=== PATIENT | female | born 1930 | race Caucasian/White ===

== ENCOUNTER 2016-12-17 16:11 | Emergency (ER) | payer MEDICARE, BC ==
[2016-12-17 16:26] VITALS: BP 138/69
--- NOTE | 2016-12-17 16:29 | EDM.PDOC ---
ED HPI GENERAL MEDICAL PROBLEM - General Chief Complaint: Respiratory Problem Stated Complaint: UPPER RESPIRATORY ISSUES Time Seen by Provider: 12/17/16 16:37 Source of Information: Reports: Patient, Family (daughter and grandson. ) History Limitations: Reports: No Limitations - History of Present Illness INITIAL COMMENTS - FREE TEXT/NARRATIVE: 86-year-old female brought to the ED by family members concerned about her oral intake. She continues to exhibit failure to thrive. She has no known Alzheimer' s disease. The concerned about her breathing is she's had to have fluid removed from her left lung on several occasions over the last few years due to recurrent pleural effusions. She is working hard to breathe. She has no appetite eat anything nothing tastes good. She does appear to have a low-grade fever and the urine is noted by the daughter to be very foul and dark in color. Patient denies nausea vomiting or diarrhea. She denies cough or sputum production although family reports that she does have a cough. Onset: Gradual (Gradual deterioration ) Onset Date: 12/14/16 Duration: Day(s):, Getting Worse Location: Reports: Generalized (Generalized failure to thrive.) Quality: Reports: Other (Nothing tastes good. Perhaps low-grade fever. Denies chills.) Severity: Moderate Improves with: Reports: None Worsens with: Reports: None Context: Denies: Activity, Exercise, Lifting, Sick Contact, Trauma, Other Associated Symptoms: Reports: Confusion, Cough (Chronic cough occasionally productive but she never brings up any sputum), Fever/Chills, Loss of Appetite, Malaise, Shortness of Breath, Weakness. Denies: Chest Pain, Diaphoresis, Headaches, Nausea/Vomiting ( Denies nausea or vomiting), Rash, Seizure Treatments ICE GUARD SKATING RINK: Reports: Acetaminophen - Related Data Allergies Allergy/AdvReac Type Severity Reaction Status Date / Time Iodinated Contrast- Oral and Allergy Cannot Verified 07/02/16 10:02 IV Dye Remember [Iodinated Contrast Media - IV Dye] Home Meds: Home Meds NK [No Known Home Meds] 0 mg PO ASDIRECTED 07/02/16 [History] Past Medical History - Past Health History Medical/Surgical History: Denies Medical/Surgical History HEENT History: Reports: Hard of Hearing, Impaired Vision Other HEENT History: Wears glasses Cardiovascular History: Reports: Afib Respiratory History: Reports: Other (See Below) Other Respiratory History: "spot" on lung found last year, frequent episodes of "fluid buildup" per family report. 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: Musculoskeletal History: Reports: Arthritis Neurological History: Reports: Alzheimers Disease, Other (See Below) Other Neuro History: dementia about 8 yrs ago, after of mother Psychiatric History: Reports: Dementia Oncologic (Cancer) History: Reports: Breast Other Oncologic History: 20 yrs ago - Infectious Disease History Infectious Disease History: Reports: Chicken Pox, Measles - Past Surgical History HEENT Surgical History: Reports: Cataract Surgery Social & Family History - Family History Family Medical History: Noncontributory HEENT: Reports: Cataract Cardiac: Reports: Pacemaker OBGYN: Reports: Oncologic: Reports: Other (See Below) Other Oncologic Family History: BRO - neck cancer, SIS (Ramon) - lung cancer, SIS and BRO - hx of skin cancers - Tobacco Use Smoking Status *Q: Never Smoker Second Hand Smoke Exposure: No - Caffeine Use Caffeine Use: Reports: Coffee - Recreational Drug Use Recreational Drug Use: No - Living Situation & Occupation Living situation: Reports: Single Occupation: Retired ED ROS GENERAL - Review of Systems Review Of Systems: Unable To Obtain (Unable to obtain with any degree of certainty from the patient she denies any problems. She is actually matted her family for poking and prodding at her and trying to get her to eat etc.) Constitutional: Reports: Malaise, Weakness, Fatigue, Decreased Appetite, Weight Loss HEENT: Reports: No Symptoms Respiratory: Reports: Shortness of Breath, Cough (Chronic). Denies: Wheezing, Pleuritic Chest Pain Cardiovascular: Reports: Dyspnea on Exertion. Denies: Chest Pain, Blood Pressure Problem, Claudication, Edema, Lightheadedness, Orthopnea Endocrine: Reports: Fatigue (Chronically) GI/Abdominal: Reports: Decreased Appetite. 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 No: Lymphadenopathy (L), Lymphadenopathy (R) Respiratory/Chest: Respiratory Distress (Tachypnea at rest 25-30/m.), Decreased Breath Sounds (To both lower lung howard but worse on the left as compared to the right. Dullness to percussion lower lung howard bilaterally. Supsect pleural effusions.), Other (Moderate kyphosis creating some component of restrictive lung disease.) Cardiovascular: Regular Rate, Rhythm, No Edema, No Gallop, No Murmur (Grade 1/6 systolic ejection murmur at the left lower sternal border. Murmur is intermittent.) Peripheral Pulses: 1+: Posterior Tibial (L), Posterior Tibial (R), Dorsalis Pedis (L), Dorsalis Pedis (R) GI/Abdominal: Normal Bowel Sounds, Soft, Non-Tender, No Organomegaly, Other. No : Guarding (Diffuse to pain to percussion with no tenderness guarding or rigidity.), Rigid, Rebound Back Exam: Other (Moderate kyphosis thoracic spine) Extremities: Slow Capillary Refill, Other (Marked cachexia with wasting of leg musculature.). No: Pedal Edema, Joint Swelling, Arm Pain, Soy's Sign, Leg Pain Neurological: Alert, No Motor/Sensory Deficits, Confused, Memory Loss Remote Events. No: Oriented, Normal Cognition (Disoriented to time and place.), Normal Gait, Disoriented (Mildly at times), Slow to Respond, Unresponsive Psychiatric: Normal Affect Skin Exam: Warm, Dry, Intact, Pallor (Mildly pallid.) Course - Vital Signs Last Recorded V/S: Last Vital Signs Temp 37.0 C 12/17/16 17:31 Pulse 89 12/17/16 16:22 Resp 25 H 12/17/16 16:22 BP 138/69 12/17/16 16:22 Pulse Ox 94 L 12/17/16 16:22 - Orders/Labs/Meds Orders: Active Orders 24 hr Category Date Time Status EKG Documentation Completion [RC] STAT Care 12/17/16 16:38 Active Chest 1V Frontal [CR] Stat Exams 12/17/16 16:37 Taken CULTURE BLOOD [BC] Stat Lab 12/17/16 17:15 Received CULTURE BLOOD [BC] Stat Lab 12/17/16 18:00 Received URINALYSIS W/MICROSCOPIC [UA W/MICROSCOPIC] [URIN] Stat Lab 12/17/16 18:20 Results Dextrose 5%-0.9% NaCl [Dextrose 5%-Normal Saline] 1,000 Med 12/17/16 16:45 Active ml IV ASDIRECTED Blood Culture x2 Reflex Set [OM.PC] Stat Oth 12/17/16 16:38 Ordered Medication Orders Dextrose/Sodium Chloride (Dextrose 5%-Normal Saline) 1,000 mls @ 250 mls/hr IV ASDIRECTED MAGDA Last Admin: 12/17/16 17:31 Dose: 250 mls/hr Labs: Laboratory Tests 12/17/16 12/17/16 12/17/16 Range/Units 17:00 17:15 17:15 WBC 4.50 (3.98-10.04) K/mm3 RBC 4.13 (3.98-5.22) M/mm3 Hgb 12.9 (11.2-15.7) gm/L Hct 37.8 (34.1-44.9) % MCV 91.5 (79.4-94.8) fl MCH 31.2 (25.6-32.2) pg MCHC 34.1 (32.2-35.5) g/dl RDW Std Deviation 44.1 (36.4-46.3) fL Plt Count 141 L (182-369) K/mm3 MPV 11.7 (9.4-12.3) fl Neutrophils % (Manual) 77 H (40-60) % Band Neutrophils % 0 (0-10) % Lymphocytes % (Manual) 19 L (20-40) % Atypical Lymphs % 0 % Monocytes % (Manual) 2 (2-10) % Eosinophils % (Manual) 2 (0.7-5.8) % Basophils % (Manual) 0 L (0.1-1.2) Platelet Estimate Adequate RBC Morph Comment Normal ESR (0-20) mm/hr PT 11.0 (8.0-13.0) SECONDS INR 1.01 Sodium (136-145) mEq/L Potassium (3.5-5.1) mEq/L Chloride (98-107) mEq/L Carbon Dioxide (21-32) mEq/L Anion Gap (5-15) BUN (7-18) mg/dL Creatinine (0.55-1.02) mg/dL Est Cr Clr Drug Dosing mL/min Estimated GFR (MDRD) (>60) mL/min BUN/Creatinine Ratio (14-18) Glucose (83-115) mg/dL Calcium (8.5-10.1) mg/dL Total Bilirubin (0.2-1.0) mg/dL AST (15-37) U/L ALT (14-59) U/L Alkaline Phosphatase (46-116) U/L Troponin I (0.00-0.056) ng/mL C-Reactive Protein (<1.0) mg/dL B-Natriuretic Peptide 100 (0-100) pg/mL Total Protein (6.4-8.2) g/dl Albumin (3.4-5.0) g/dl Globulin gm/dL Albumin/Globulin Ratio (1-2) Urine Color (Yellow) Urine Appearance (Clear) Urine pH (5.0-8.0) Ur Specific [place] (1.005-1.030) Urine Protein (Negative) Urine Glucose (UA) (Negative) Urine Ketones (Negative) Urine Occult Blood (Negative) Urine Nitrite (Negative) Urine Bilirubin (Negative) Urine Urobilinogen (0.2-1.0) Ur Leukocyte Esterase (Negative) 12/17/16 12/17/16 12/17/16 Range/Units 17:15 17:15 18:20 WBC (3.98-10.04) K/mm3 RBC (3.98-5.22) M/mm3 Hgb (11.2-15.7) gm/L Hct (34.1-44.9) % MCV (79.4-94.8) fl MCH (25.6-32.2) pg MCHC (32.2-35.5) g/dl RDW Std Deviation (36.4-46.3) fL Plt Count (182-369) K/mm3 MPV (9.4-12.3) fl Neutrophils % (Manual) (40-60) % Band Neutrophils % (0-10) % Lymphocytes % (Manual) (20-40) % Atypical Lymphs % % Monocytes % (Manual) (2-10) % Eosinophils % (Manual) (0.7-5.8) % Basophils % (Manual) (0.1-1.2) Platelet Estimate RBC Morph Comment ESR 82 H (0-20) mm/hr PT (8.0-13.0) SECONDS INR Sodium 140 (136-145) mEq/L Potassium 3.8 (3.5-5.1) mEq/L Chloride 104 (98-107) mEq/L Carbon Dioxide 24 (21-32) mEq/L Anion Gap 15.8 H (5-15) BUN 14 (7-18) mg/dL Creatinine 1.0 (0.55-1.02) mg/dL Est Cr Clr Drug Dosing 27.53 mL/min Estimated GFR (MDRD) 52 (>60) mL/min BUN/Creatinine Ratio 14.0 (14-18) Glucose 91 (83-115) mg/dL Calcium 8.8 (8.5-10.1) mg/dL Total Bilirubin 1.5 H (0.2-1.0) mg/dL AST 13 L (15-37) U/L ALT 12 L (14-59) U/L Alkaline Phosphatase 82 (46-116) U/L Troponin I < 0.017 (0.00-0.056) ng/mL C-Reactive Protein 3.3 H* (<1.0) mg/dL B-Natriuretic Peptide (0-100) pg/mL Total Protein 7.2 (6.4-8.2) g/dl Albumin 3.2 L (3.4-5.0) g/dl Globulin 4.0 gm/dL Albumin/Globulin Ratio 0.8 L (1-2) Urine Color Dark yellow (Yellow) Urine Appearance Clear (Clear) Urine pH 5.5 (5.0-8.0) Ur Specific [place] > or = 1.030 (1.005-1.030) Urine Protein 1+ H (Negative) Urine Glucose (UA) Negative (Negative) Urine Ketones 1+ H (Negative) Urine Occult Blood Negative (Negative) Urine Nitrite Negative (Negative) Urine Bilirubin 1+ H (Negative) Urine Urobilinogen 1.0 (0.2-1.0) Ur Leukocyte Esterase Negative (Negative) Meds: Medications Generic Name Dose Route Start Last Admin Trade Name Freq PRN Reason Stop Dose Admin Dextrose/Sodium Chloride 1,000 mls @ 250 mls/hr 12/17/16 16:45 12/17/16 17:31 Dextrose 5%-Normal Saline IV 250 mls/hr ASDIRECTED MAGDA Administration Discontinued Medications Generic Name Dose Route Start Last Admin Trade Name Freq PRN Reason Stop Dose Admin Acetaminophen 650 mg 12/17/16 16:40 12/17/16 17:31 Tylenol PO 12/17/16 16:41 650 mg ONETIME ONE Administration - Radiology Interpretation Free Text/Narrative:: 86-year-old female brought to the ED by family members because of concerns about her difficulty breathing. They appreciate that she's working hard to breathe. She has a history of recurrent left-sided pleural effusion requiring thoracentesis. Been off for the last several years. She is eating extremely poorly and no doubt has hypo-daughter also appreciates that her urine is foul- smelling and suspects a urinary tract infection. Clinically she does have a low- grade fever. Patient herself denies most problems due to underlying organic brain disease. Plan CBC CMP urinalysis one view chest x-ray given Tylenol 650 mg per ora for fever relief. He will be D5 normal saline at 250 mils per hour - Re-Assessments/Exams Free Text/Narrative Re-Assessment/Exam: 12/17/16 18:12 chest x-ray does reveal bilateral pleural effusions taking up about 25-30% of the lower lung howard bilaterally. Labs reveal a normal white count of 4.5 with a slight left shift of 77% neutrophils and no bands. Hemoglobin is 12.9 hematocrit is 37.8. Platelets 141,000. Coags are normal sodium 140 potassium 3.8. Cord 104 bicarbonate 24. And a gap is 15.8. Bilirubin is 1.5 glucose is 91. Troponin is normal at less than 0.017 CRP is mildly elevated 3.3 albumin fraction 3.2 BNP is only 100. Creatinine is 1.0 and eGFR is 52. Therefore the etiology of bilateral pleural effusions without signs of significant heart failure is unclear. Clearly she has had thoracenteses on several times in the past but I'm not privy to the information as to whether the fluid was a transudate or showed any signs of malignancy. Tentatively she will need to be admitted to the hospital but I'm awaiting for her urinalysis as she may have a low-grade fever from UTI. Of note her ECG revealed sinus rhythm at 89/m. 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 There are also Q waves in lead 3 and near Q waves in aVF suggestive of an old inferior wall myocardial infarction. First-degree AV block present. ST segment depression noted in lead 1. Abnormal ECG 12/17/16 18:53 the urinalysis dip anyways was negative for any signs of infection particular negative leukocyte esterase. Therefore the major finding is bilateral pleural effusions taking up 20-25% of each lung field causing her chronic cough. I strongly suspect with a sedimentation rate of 82 that she has an underlying malignancy contributing to pleural effusions. Her heart BNP is normal indicating normal function for the most part and her albumin fraction is is good as well. Therefore most likely cause of bilateral pleural effusions is an underlying malignancy. Spoke at length with the family members who son grandson and a daughter whom she lives with. Made a decision to take her home tonight versus place her in the hospital for thoracentesis as she does very well poorly in hospital in a strange environment due to her dementia. Will make arrangements with follow-up with personnel at [facility] and thoracentesis could be performed as an outpatient procedure risks confirmation of possible malignancy. She would not benefit from any medications at this time as diuretics will just just cause dehydration with minimal ability to improve her pleural effusions. Family understands this and she will be discharged to home. Departure - Departure Time of Disposition: 19:03 Disposition: Home, Self-Care 01 Condition: Fair Clinical Impression: Adult failure to thrive syndrome, Bilateral pleural effusion - Discharge Information Forms: ED Department Discharge Additional Instructions: Evaluation carried out in the emergency today in regards to essentially adult failure to thrive syndrome. Complete loss of appetite with continued gradual weight loss decline in health. Persistent nagging nonproductive cough. Chest x- ray does reveal fluid in the bottom of both lungs taking up 20-25% of lung volume on both sides. The rest of her lab work proved to be negative for any signs of infection in the urinalysis obtained by catheterization was also negative for any source of infection. Heart is functioning well and kidneys are doing not too badly. Therefore concern for an underlying malignancy is evident. The only way to prove this would be to have some of the fluid removed from one of her lungs preferably the right one for cell analysis to see if it can identify a malignancy. CT of the abdomen and pelvis may also shed light on possible causes. 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 Therefore decision made to follow-up in clinic with an outpatient thoracentesis possible to help prove the diagnosis and see if there is a treatment plan available to her. At this time no treatment options were offered through the emergency room. - My Orders Last 24 Hours: My Active Orders 12/17/16 16:37 Chest 1V Frontal [CR] Stat 12/17/16 16:38 EKG Documentation Completion [RC] STAT Blood Culture x2 Reflex Set [OM.PC] Stat 12/17/16 16:45 Dextrose 5%-0.9% NaCl [Dextrose 5%-Normal Saline] 1,000 ml IV ASDIRECTED 12/17/16 17:15 CULTURE BLOOD [BC] Stat 12/17/16 18:00 CULTURE BLOOD [BC] Stat 12/17/16 18:20 URINALYSIS W/MICROSCOPIC [UA W/MICROSCOPIC] [URIN] Stat - Assessment/Plan Last 24 Hours: My Active Orders 12/17/16 16:37 Chest 1V Frontal [CR] Stat 12/17/16 16:38 EKG Documentation Completion [RC] STAT Blood Culture x2 Reflex Set [OM.PC] Stat 12/17/16 16:45 Dextrose 5%-0.9% NaCl [Dextrose 5%-Normal Saline] 1,000 ml IV ASDIRECTED 12/17/16 17:15 CULTURE BLOOD [BC] Stat 12/17/16 18:00 CULTURE BLOOD [BC] Stat 12/17/16 18:20 URINALYSIS W/MICROSCOPIC [UA W/MICROSCOPIC] [URIN] Stat
[2016-12-17] MEDS ORDERED: Acetaminophen 325 MG Tab PO ONE (16:40)
[2016-12-17] MEDS ORDERED: Dextrose 5%-0.9% NaCl 1,000 ML IV SCH (16:45)
--- NOTE | 2016-12-18 08:02 | CR ---
Chest: Portable view of the chest was obtained. Comparison: Previous chest x-ray of 07/03/16. Bilateral pleural effusions are seen. Pulmonary vessels are mildly congested. Heart size is slightly enlarged. Bony structures are osteopenic. Compression deformities are seen within the mid thoracic spine which appear old. Surgical clips are noted within the left upper abdomen. Impression: 1. Bilateral pleural effusions. Findings are suspicious for CHF. 2. Other incidental findings. Diagnostic code #3
== END 2016-12-17 19:38 | disposition home or self-care (01) ==
LOC: JD.ED 16:11
DX: J90 Pleural effusion, not elsewhere classified (principal); R62.7 Adult failure to thrive; I48.91 Unspecified atrial fibrillation; Z91.041 Radiographic dye allergy status; R06.02 Shortness of breath
CPT/HCPCS: 36415; 71010; 80053; 81001; 83880; 84484; 85025; 85610; 85652; 86140; 87040; 93005; 96360; 96361; 99285; A9270; J7042; P9612; 99283

== ENCOUNTER 2017-01-24 11:05 | Emergency (ER) | payer MEDICARE, BC ==
[2017-01-24 11:17] VITALS: BP 132/84
[2017-01-24] MEDS ORDERED: Sodium Chloride 0.9% 10 ML Syringe FLUSH PRN (11:50)
--- NOTE | 2017-01-24 12:12 | EDM.PDOC ---
ED HPI GENERAL MEDICAL PROBLEM - General Chief Complaint: Respiratory Problem Stated Complaint: WEAKNESS Time Seen by Provider: 01/24/17 11:18 Source of Information: Reports: Patient, Family (daughters) History Limitations: Reports: Other (dementia) - History of Present Illness INITIAL COMMENTS - FREE TEXT/NARRATIVE: 86-year-old female is brought in by her sisters for evaluation and treatment of increased weakness. Weakness has been worsening over the last 3-4 weeks. They currently report a decreased appetite and stated that she will not take any foods or fluids, Decreased energy, shortness of breath, weakness and lethargy. They deny any cough. Reports that she had temperature of 99 Fahrenheit last night but otherwise no temperatures. She is not complaining of any pain, including chest pain or abdominal pain. Daughters report that she did have one episode of vomiting last name 2 episodes of diarrhea last night. Patient has a past medical history of frequent pleural effusions have required several chest tubes in the past. Most recent chest tube placement resulted in Lissy pulling out the tubes. Family no longer wants chest tubes placed and according to family, pulmonology would recommend against further chest tube placement. Patient is a DNR, DNI. - Related Data Allergies Allergy/AdvReac Type Severity Reaction Status Date / Time Iodinated Contrast- Oral and Allergy Cannot Verified 01/24/17 11:17 IV Dye Remember [Iodinated Contrast Media - IV Dye] Home Meds: Home Meds Aspirin 81 mg PO DAILY 01/24/17 [History] Azithromycin [IMW: Azithromycin] 250 mg PO BID 01/24/17 [History] Past Medical History - Past Health History Medical/Surgical History: Denies Medical/Surgical History HEENT History: Reports: Hard of Hearing, Impaired Vision Other HEENT History: Wears glasses Cardiovascular History: Reports: Afib, Heart Failure Respiratory History: Reports: Other (See Below) Other Respiratory History: "spot" on lung found last year, frequent episodes of "fluid buildup" per family report. 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: Musculoskeletal History: Reports: Arthritis Neurological History: Reports: Alzheimers Disease, Other (See Below) Other Neuro History: dementia about 8 yrs ago, after of mother Psychiatric History: Reports: Dementia Oncologic (Cancer) History: Reports: Breast Other Oncologic History: 20 yrs ago - Infectious Disease History Infectious Disease History: Reports: Chicken Pox, Measles - Past Surgical History Head Surgeries/Procedures: Reports: None HEENT Surgical History: Reports: Cataract Surgery Female Surgical History: Reports: Hysterectomy Dermatological Surgical History: Reports: None Social & Family History - Family History Family Medical History: Noncontributory HEENT: Reports: Cataract Cardiac: Reports: Pacemaker OBGYN: Reports: Oncologic: Reports: Other (See Below) Other Oncologic Family History: BRO - neck cancer, SIS (Ramon) - lung cancer, SIS and BRO - hx of skin cancers - Tobacco Use Smoking Status *Q: Never Smoker Second Hand Smoke Exposure: No - Caffeine Use Caffeine Use: Reports: Coffee - Recreational Drug Use Recreational Drug Use: No - Living Situation & Occupation Living situation: Reports: Single Occupation: Retired ED ROS GENERAL - Review of Systems Review Of Systems: See Below Constitutional: Reports: Weakness, Fatigue, Decreased Appetite. Denies: Fever Respiratory: Reports: Shortness of Breath. Denies: Cough Cardiovascular: Denies: Chest Pain GI/Abdominal: Reports: Diarrhea (x2 last night), Vomiting (x1 last night). Denies: Abdominal Pain, Nausea ED EXAM, GENERAL - Physical Exam Exam: See Below Exam Limited By: No Limitations General Appearance: Alert, No Apparent Distress, Thin Ears: Normal External Exam, Normal Canal, Hearing Grossly Normal, Normal TMs Nose: Normal Inspection Throat/Mouth: Normal Inspection, Normal Lips, Normal Voice, No Airway Compromise , Other (dry mucus membranes) Respiratory/Chest: No Respiratory Distress, Crackles (left lower lung base) Cardiovascular: Normal Peripheral Pulses, Regular Rate, Rhythm, No Edema, No Murmur GI/Abdominal: Normal Bowel Sounds, Soft, Non-Tender Neurological: Alert Psychiatric: Normal Affect, Normal Mood Skin Exam: Warm, Dry, Normal Color EKG INTERPRETATION EKG Date: 01/24/17 Time: 11:55 Rhythm: NSR Rate (Beats/Min): 79 [place]: LAD-Left [place] Deviation P-Wave: Present QRS: Normal ST-T: Normal QT: Normal EKG Interpretation Comments: NSR at [address] elevation in V2. Q waves inferior and anterior leads. Abnormal EKG Reviewed by myself and Dr. Guerra Minimal change from prior ekg- Q waves in V2 Course - Vital Signs Last Recorded V/S: Last Vital Signs Temp 36.4 C 01/24/17 11:13 Pulse 83 01/24/17 11:13 Resp 26 H 01/24/17 11:13 BP 132/84 01/24/17 11:13 Pulse Ox - Orders/Labs/Meds Labs: Laboratory Tests 01/24/17 01/24/17 01/24/17 Range/Units 12:00 12:00 12:00 WBC 3.38 L (3.98-10.04) K/mm3 RBC 4.72 (3.98-5.22) M/mm3 Hgb 14.4 (11.2-15.7) gm/L Hct 43.3 (34.1-44.9) % MCV 91.7 (79.4-94.8) fl MCH 30.5 (25.6-32.2) pg MCHC 33.3 (32.2-35.5) g/dl RDW Std Deviation 48.2 H (36.4-46.3) fL Plt Count 145 L (182-369) K/mm3 MPV 11.4 (9.4-12.3) fl Neutrophils % (Manual) 80 H (40-60) % Band Neutrophils % 0 (0-10) % Lymphocytes % (Manual) 15 L (20-40) % Atypical Lymphs % 0 % Monocytes % (Manual) 5 (2-10) % Eosinophils % (Manual) 0 L (0.7-5.8) % Basophils % (Manual) 0 L (0.1-1.2) Platelet Estimate Adequate RBC Morph Comment Normal Sodium 140 (136-145) mEq/L Potassium 3.9 (3.5-5.1) mEq/L Chloride 105 (98-107) mEq/L Carbon Dioxide 29 (21-32) mEq/L Anion Gap 9.9 (5-15) BUN 15 (7-18) mg/dL Creatinine 1.1 H (0.55-1.02) mg/dL Est Cr Clr Drug Dosing 23.48 mL/min Estimated GFR (MDRD) 47 (>60) mL/min BUN/Creatinine Ratio 13.6 L (14-18) Glucose 104 (83-115) mg/dL POC Glucose (83-110) mg/dL Lactic Acid (0.4-2.0) mmol/L Calcium 9.4 (8.5-10.1) mg/dL Magnesium 2.2 (1.8-2.4) mg/dl Total Bilirubin 1.2 H (0.2-1.0) mg/dL AST 34 (15-37) U/L ALT 25 (14-59) U/L Alkaline Phosphatase 79 (46-116) U/L CK-MB (CK-2) < 0.5 (0-3.6) ng/ml Troponin I < 0.017 (0.00-0.056) ng/mL C-Reactive Protein 0.3 (<1.0) mg/dL [id number] Pept 638 H (0-450) pg/mL Total Protein 7.7 (6.4-8.2) g/dl Albumin 3.4 (3.4-5.0) g/dl Globulin 4.3 gm/dL Albumin/Globulin Ratio 0.8 L (1-2) Urine Color (Yellow) Urine Appearance (Clear) Urine pH (5.0-8.0) Ur Specific [place] (1.005-1.030) Urine Protein (Negative) Urine Glucose (UA) (Negative) Urine Ketones (Negative) Urine Occult Blood (Negative) Urine Nitrite (Negative) Urine Bilirubin (Negative) Urine Urobilinogen (0.2-1.0) Ur Leukocyte Esterase (Negative) Urine RBC (0-5) /hpf Urine WBC (0-5) /hpf Ur Epithelial Cells (0-5) /hpf Urine Bacteria (FEW) /hpf Urine Mucus (FEW) /hpf 01/24/17 01/24/17 01/24/17 Range/Units 12:10 12:25 16:20 WBC (3.98-10.04) K/mm3 RBC (3.98-5.22) M/mm3 Hgb (11.2-15.7) gm/L Hct (34.1-44.9) % MCV (79.4-94.8) fl MCH (25.6-32.2) pg MCHC (32.2-35.5) g/dl RDW Std Deviation (36.4-46.3) fL Plt Count (182-369) K/mm3 MPV (9.4-12.3) fl Neutrophils % (Manual) (40-60) % Band Neutrophils % (0-10) % Lymphocytes % (Manual) (20-40) % Atypical Lymphs % % Monocytes % (Manual) (2-10) % Eosinophils % (Manual) (0.7-5.8) % Basophils % (Manual) (0.1-1.2) Platelet Estimate RBC Morph Comment Sodium (136-145) mEq/L Potassium (3.5-5.1) mEq/L Chloride (98-107) mEq/L Carbon Dioxide (21-32) mEq/L Anion Gap (5-15) BUN (7-18) mg/dL Creatinine (0.55-1.02) mg/dL Est Cr Clr Drug Dosing mL/min Estimated GFR (MDRD) (>60) mL/min BUN/Creatinine Ratio (14-18) Glucose (83-115) mg/dL POC Glucose 92 (83-110) mg/dL Lactic Acid 1.3 (0.4-2.0) mmol/L Calcium (8.5-10.1) mg/dL Magnesium (1.8-2.4) mg/dl Total Bilirubin (0.2-1.0) mg/dL AST (15-37) U/L ALT (14-59) U/L Alkaline Phosphatase (46-116) U/L CK-MB (CK-2) (0-3.6) ng/ml Troponin I (0.00-0.056) ng/mL C-Reactive Protein (<1.0) mg/dL [id number]-Vtlbeyqczvp Pept (0-450) pg/mL Total Protein (6.4-8.2) g/dl Albumin (3.4-5.0) g/dl Globulin gm/dL Albumin/Globulin Ratio (1-2) Urine Color Yellow (Yellow) Urine Appearance Clear (Clear) Urine pH 5.5 (5.0-8.0) Ur Specific [place] > or = 1.030 (1.005-1.030) Urine Protein 1+ H (Negative) Urine Glucose (UA) Negative (Negative) Urine Ketones 1+ H (Negative) Urine Occult Blood 1+ H (Negative) Urine Nitrite Negative (Negative) Urine Bilirubin 1+ H (Negative) Urine Urobilinogen 0.2 (0.2-1.0) Ur Leukocyte Esterase Negative (Negative) Urine RBC 0-5 (0-5) /hpf Urine WBC 0-5 (0-5) /hpf Ur Epithelial Cells 0-5 (0-5) /hpf Urine Bacteria Few (FEW) /hpf Urine Mucus Few (FEW) /hpf Meds: Medications Discontinued Medications Generic Name Dose Route Start Last Admin Trade Name Jackie PRN Reason Stop Dose Admin Sodium Chloride 1,000 mls @ 75 mls/hr 01/24/17 15:00 01/24/17 15:06 Normal Saline IV 75 mls/hr ASDIRECTED MAGDA Administration Sodium Chloride 10 ml 01/24/17 11:50 01/24/17 12:03 Saline Flush FLUSH 10 ml ASDIRECTED PRN Administration Keep Vein Open - Radiology Interpretation Free Text/Narrative:: chest xray [address] Pendleton: 1. Small to moderate sized pleural effusions. 2. Pulmonary vessels are congested. 3. Other incidental findings. - Re-Assessments/Exams Free Text/Narrative Re-Assessment/Exam: 01/24/17 17:49 Labs include the following: wbc slightly low at 3.38, hgb is 14.4 and plts are 145 sodium is 140, potassium is 3.9 and chloride is 105. anion gap is 9.9. Total bili slightly elevated at 1.2 BNP elevated at 638 CKMB is normal at <0.5 trop is normal at <0.017 UA has 1+ protein, 1+ ketones, 1+ blood, 1+ bili I discussed the labs, ekg and imaging withe patient and her sisters. Discussed admission for IV hydration, social work consult and dietary consult. After a lengthy discussion family elected to admit. I spoke with Dr. Weston, hospitalist, who would like social work to come and see her now in the ER prior to an admission. After social work talked with the family, they elected instead to bring Lissy home. After seeing social work, Lissy had an unresponsive episode. She would not respond to her sisters shaking her nor sternal rubs from nursing staff. She is a DNR, DNI and we had a previous discussion that they want no further intervention therefore no code or medical alert was called. The patient was on the threat monitoring analyst and had a pulse during the entire time. This occurred around 16:15 and lasted approximately 30 minutes. When I revisited the patient around 16:45 she began to become more responsive. I offered additional testing such as a CT but family declined as she is not a surgical candidate and wound not want thrombolytics. This episode did cause concern for one of the sisters who then asked we admit the patient. I asked social work to come and again see the family. A management accounts manager was contacted and he came and saw Lissy in the ER. At this time the patient's sister, who is her primary care provider, feels comfortable taking the patient home. The patient is now alert and talkative. She is requesting to go home. The other sister would like Lissy to stay but is ok with her going home. Unfortunately I do not feel Lissy has much time left. She is not in any pain. But family does not want further intervention. We did discuss tube placement for feeding which they declined. Will discharge home. Discharge instructions as documented. Departure - Departure Time of Disposition: 17:54 Disposition: Home, Self-Care 01 Condition: Poor Clinical Impression: Bilateral pleural effusion, Adult failure to thrive syndrome - Discharge Information Instructions: Failure to Thrive, Adult, [id number] Referrals: Isabela Coates, MECHANICAL MAINTENANCE FOREMAN [Primary Care Provider] - Forms: ED Department Discharge Additional Instructions: Go home and rest. It is likely Lissy may pass in the next couple of days. Make her comfortable. Encourage sips of fluids. Follow-up with her PCP as needed. Please return to the ER for any problems or concerns.
--- NOTE | 2017-01-24 13:42 | CR ---
Chest: Portable view of the chest was obtained. Comparison: Previous chest x-ray of 12/17/16. Small to moderate sized bilateral pleural effusions are noted. Pulmonary vessels appear congested. Heart is enlarged. Bony structures are grossly intact. There is a compression deformity seen within the lower thoracic spine which appears old. Impression: 1. Small to moderate sized bilateral pleural effusions. 2. Pulmonary vessels are congested. 3. Other incidental findings. Diagnostic code #3
[2017-01-24] MEDS ORDERED: Sodium Chloride 0.9% 1,000 ML IV SCH (15:00)
== END 2017-01-24 18:00 | disposition home or self-care (01) ==
LOC: JD.ED 11:05
DX: J90 Pleural effusion, not elsewhere classified (principal); R62.7 Adult failure to thrive; I50.9 Heart failure, unspecified; I48.91 Unspecified atrial fibrillation; G30.9 Alzheimer's disease, unspecified; F02.80 Dementia in other diseases classified elsewhere, unspecified severity, without behavioral disturbance, psychotic disturbance, mood disturbance, and anxiety; Z85.3 Personal history of malignant neoplasm of breast; Z98.49 Cataract extraction status, unspecified eye; Z90.710 Acquired absence of both cervix and uterus; Z79.82 Long term (current) use of aspirin; Z91.041 Radiographic dye allergy status
CPT/HCPCS: 36415; 71010; 80053; 81001; 82553; 82962; 83605; 83735; 83880; 84484; 85025; 86140; 87040; 93005; 96360; 96361; 99285; J7040; J7050; P9612; 99284

== ENCOUNTER 2017-03-10 09:06 | Emergency (ER) | payer MEDICARE, BC ==
[2017-03-10 09:40] VITALS: BP 122/80
--- NOTE | 2017-03-10 10:38 | CR ---
Chest: Portable view of the chest was obtained. Comparison: Previous chest x-ray of 01/24/17. Moderately large bilateral pleural effusions are seen. Pulmonary vessels are mildly congested. Heart size is slightly enlarged. Bony structures show stable compression deformity within the lower thoracic spine. Osteopenia is noted. Mild scoliosis is present within the spine. Single surgical clip is noted within the left upper abdomen. Impression: 1. Findings as described above. Study appears fairly stable from previous exam. Diagnostic code #3
--- NOTE | 2017-03-10 10:47 | EDM.PDOC ---
ED HPI GENERAL MEDICAL PROBLEM - General Chief Complaint: Respiratory Problem Stated Complaint: CHF FLARE UP Time Seen by Provider: 03/10/17 09:47 Source of Information: Reports: Patient, RN Notes Reviewed - History of Present Illness INITIAL COMMENTS - FREE TEXT/NARRATIVE: 86-year-old female brought in by family with concerns about worseningdifficulty breathing, generalized weakness, not eating or drinking well. She does have history of chronic CHF. She does have dementia. Having difficulty getting her to eat or drink. She apparently does have great difficulty with any type of solids. She has been getting pleural effusions over the past 1-2 years. She did actually have a chest tube or drainage tube put in about 3 months ago which was left in for about 2 weeks. Remove due to some possible infection issues and also she was having a lot of pain with that. Family did bring her to [place] last week to see her nanny babysitter. He stated that there was not much point in continuing to do thoracocentesis because "the fluid which is come back". Family is looking primarily at comfort care measures at this time. - Related Data Allergies Allergy/AdvReac Type Severity Reaction Status Date / Time Iodinated Contrast- Oral and Allergy Cannot Verified 01/24/17 11:17 IV Dye Remember [Iodinated Contrast Media - IV Dye] Home Meds: Home Meds . [No Known Home Meds] 03/10/17 [History] Past Medical History - Past Health History Medical/Surgical History: Denies Medical/Surgical History HEENT History: Reports: Hard of Hearing, Impaired Vision Other HEENT History: Wears glasses Cardiovascular History: Reports: Afib, Heart Failure Respiratory History: Reports: Other (See Below) Other Respiratory History: "spot" on lung found last year, frequent episodes of "fluid buildup" per family report. 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: Musculoskeletal History: Reports: Arthritis Neurological History: Reports: Alzheimers Disease, Other (See Below) Other Neuro History: dementia about 8 yrs ago, after of mother Psychiatric History: Reports: Dementia Oncologic (Cancer) History: Reports: Breast Other Oncologic History: 20 yrs ago - Infectious Disease History Infectious Disease History: Reports: Chicken Pox, Measles - Past Surgical History Head Surgeries/Procedures: Reports: None HEENT Surgical History: Reports: Cataract Surgery Female Surgical History: Reports: Hysterectomy Dermatological Surgical History: Reports: None Social & Family History - Family History Family Medical History: Noncontributory HEENT: Reports: Cataract Cardiac: Reports: Pacemaker OBGYN: Reports: Oncologic: Reports: Other (See Below) Other Oncologic Family History: BRO - neck cancer, SIS (Ramon) - lung cancer, SIS and BRO - hx of skin cancers - Tobacco Use Smoking Status *Q: Unknown Ever Smoked Second Hand Smoke Exposure: No - Caffeine Use Caffeine Use: Reports: Coffee - Recreational Drug Use Recreational Drug Use: No - Living Situation & Occupation Living situation: Reports: Single Occupation: Retired ED ROS GENERAL - Review of Systems Review Of Systems: See Below Constitutional: Denies: Fever, Chills HEENT: Reports: No Symptoms Respiratory: Reports: Shortness of Breath, Cough (occasional) Cardiovascular: Denies: Chest Pain GI/Abdominal: Reports: Decreased Appetite. Denies: Abdominal Pain, Nausea, Vomiting Musculoskeletal: Denies: Leg Pain Skin: Reports: No Symptoms Neurological: Reports: Dizziness, Difficulty Walking, Weakness (generalized) ED EXAM, GENERAL - Physical Exam Exam: See Below General Appearance: Alert, No Apparent Distress Eye Exam: Bilateral Eye: PERRL Throat/Mouth: Normal Inspection, Normal Oropharynx Head: Atraumatic. No: Facial Swelling Neck: Supple, Other (no JVD) Respiratory/Chest: Respiratory Distress (mild tachypnea). No: Rales, Rhonchi, Wheezing Cardiovascular: Tachycardia GI/Abdominal: Soft, Non-Tender Back Exam: No: CVA Tenderness (L), CVA Tenderness (R) Extremities: No: No Pedal Edema, Joint Swelling, Increased Warmth Neurological: Other (mildly drowsy, arouseable, answers simple questions appropriately) Skin Exam: Warm, Dry, Normal Color Course - Vital Signs Last Recorded V/S: Last Vital Signs Temp 97.9 F 03/10/17 09:36 Pulse 102 H 03/10/17 09:36 Resp 24 H 03/10/17 09:36 BP 122/80 03/10/17 09:36 Pulse Ox 95 03/10/17 09:36 - Orders/Labs/Meds Labs: Laboratory Tests 03/10/17 03/10/17 Range/Units 10:30 10:30 WBC 5.76 (3.98-10.04) K/mm3 RBC 4.38 (3.98-5.22) M/mm3 Hgb 13.7 (11.2-15.7) gm/L Hct 40.8 (34.1-44.9) % MCV 93.2 (79.4-94.8) fl MCH 31.3 (25.6-32.2) pg MCHC 33.6 (32.2-35.5) g/dl RDW Std Deviation 48.3 H (36.4-46.3) fL Plt Count 110 L (182-369) K/mm3 MPV 12.3 (9.4-12.3) fl Neut % (Auto) 86.0 H (34.0-71.1) % Lymph % (Auto) 6.9 L (19.3-51.7) % [place] % (Auto) 6.4 (4.7-12.5) % Eos % (Auto) 0.3 L (0.7-5.8) Baso % (Auto) 0.2 (0.1-1.2) % Neut # (Auto) 4.95 (1.56-6.13) K/mm3 Lymph # (Auto) 0.40 L (1.18-3.74) K/mm3 [place] # (Auto) 0.37 H (0.24-0.36) K/mm3 Eos # (Auto) 0.02 L (0.04-0.36) K/mm3 Baso # (Auto) 0.01 (0.01-0.08) K/mm3 Manual Slide Review Abnormal smear Sodium 144 (136-145) mEq/L Potassium 3.8 (3.5-5.1) mEq/L Chloride 107 (98-107) mEq/L Carbon Dioxide 26 (21-32) mEq/L Anion Gap 14.8 (5-15) BUN 31 H (7-18) mg/dL Creatinine 1.2 H (0.55-1.02) mg/dL Est Cr Clr Drug Dosing 18.68 mL/min Estimated GFR (MDRD) 42 (>60) mL/min BUN/Creatinine Ratio 25.8 H (14-18) Glucose 203 H (83-115) mg/dL Calcium 9.0 (8.5-10.1) mg/dL Total Bilirubin 1.3 H (0.2-1.0) mg/dL AST 24 (15-37) U/L ALT 15 (14-59) U/L Alkaline Phosphatase 69 (46-116) U/L NT-Pro-B Natriuret Pep 64933 H (0-450) pg/mL Total Protein 7.3 (6.4-8.2) g/dl Albumin 2.9 L (3.4-5.0) g/dl Globulin 4.4 gm/dL Albumin/Globulin Ratio 0.7 L (1-2) - Re-Assessments/Exams Free Text/Narrative Re-Assessment/Exam: 03/10/17 12:12, patient has been resting and breathing comfortably while awaiting lab work. Does show some bilateral effusion with mild left-sided infiltrate, chronic, chest x-ray actually looks improved from her chest x-ray of January about 1 month ago. Sats been running 93-95%. Family reiterates that it was congestive heart failure and dyspnea that they are most worried about at this time. Family does have a portable oximeter at home but unable to get a reading this morning. That is primarily why they brought her in to the ED this morning. She is not currently on a diuretic. with her not eating or drinking much to start a diuretic at this point in time may likely do more harm than good. Family states that also is what told them last week at the time of her [place] clinic appointment. Therefore we will continue to hold off on a diuretic or any other medication at this time. Discharge instructions as documented Departure - Departure Time of Disposition: 12:15 Disposition: Home, Self-Care 01 Condition: Fair Clinical Impression: Congestive heart failure Qualifiers: Congestive heart failure type: combined Congestive heart failure chronicity: chronic Qualified Code(s): I50.42 - Chronic combined systolic (congestive) and diastolic (congestive) heart failure - Discharge Information Instructions: Heart Failure, [id number] Referrals: Isabela Coates [employer]SC[employer] PRODUCER [Primary Care Provider] - Forms: ED Department Discharge Additional Instructions: continue present care, continued to try check oximetry saturation readings once or twice daily, keep a log of those readings to watch for any type of worsening trend. If unable to get a sat reading at any particular day just wait and try get that the next day. Follow up clinic as needed. IF here breathing becomes severely labored return to ED as needed.
== END 2017-03-10 12:32 | disposition home or self-care (01) ==
LOC: JD.ED 09:06
DX: I50.42 Chronic combined systolic (congestive) and diastolic (congestive) heart failure (principal); I48.91 Unspecified atrial fibrillation; Z91.041 Radiographic dye allergy status; Z90.710 Acquired absence of both cervix and uterus
CPT/HCPCS: 36415; 71010; 71010-26; 80053; 83880; 85025; 99283; 99285